=== PATIENT | male | born 1980 ===

== ENCOUNTER 2016-09-30 11:37 | Emergency (ER) | payer BC ==
[2016-09-30 12:53] VITALS: BP 129/87
--- NOTE | 2016-09-30 13:30 | UC ---
Abdominal Pain Male HPI - HPI Summary HPI Summary: Pt had mild URI sx starting about a week ago: ST, runny nose, mild cough. Was feeling a bit better 3 days ago, then that night developed fever, aches, and profuse vomiting and diarrhea. Fever continued for another 1.5 days, up to 102F at times, vomiting has resolved but diarrhea has continued. Still nauseated and low appetite. Mostly not coughing, but did develop pain in back and pain "in lungs" 3 days ago. Has improved somewhat; pt had pneumonia in the past, says this doesn't feel like that. - History of Current Complaint Chief Complaint: UCGeneralIllness Stated Complaint: N/V/D/Cough Time Seen by Provider: 09/30/16 13:12 Hx Obtained From: Patient Onset/Duration: Gradual Onset, Lasting Days Timing: Constant Severity Initially: Mild Severity Currently: Moderate Location: Diffuse Radiates: Yes Radiates to: Back Character: Cramping Aggravating Factor(s):: Food Alleviating Factor(s): Rest Associated Signs And Symptoms: Positive: Fever, Cough, Back Pain, Vomiting, Diarrhea - Allergies/Home Medications Allergies/Adverse Reactions: Allergies Allergy/AdvReac Type Severity Reaction Status Date / Time No Known Allergies Allergy Verified 09/30/16 12:46 Home Medications: Home Medications Acetaminophen TAB* [Tylenol TAB*] 09/30/16 [History] Ibuprofen TAB* [Advil TAB*] 09/30/16 [History] PMH/Surg Hx/FS Hx/Imm Hx Previously Healthy: Yes - Surgical History Surgical History: None - Family History Known Family History: Positive: Renal Disease - father has had 2 transplants, brother in renal failure - Social History Occupation: Employed Full-time Lives: With Family Alcohol Use: Occasionally Substance Use Type: None Smoking Status (MU): Current Some Day Smoker Type: Smokeless Tobacco Amount Used/How Often: occas Review of Systems Constitutional: Fever, Chills, Fatigue Skin: Negative Eyes: Negative ENT: Sore Throat, Nasal Discharge Respiratory: Cough Cardiovascular: Negative Gastrointestinal: Vomiting, Diarrhea Genitourinary: Negative Motor: Negative Neurovascular: Negative Musculoskeletal: Negative Neurological: Negative Psychological: Negative All Other Systems Reviewed And Are Negative: Yes Physical Exam Triage Information Reviewed: Yes Appearance: Well-Appearing, No Pain Distress, Well-Nourished Vital Signs: Initial Vital Signs Temp 97.7 F 01/03/17 12:47 Pulse 59 09/30/16 12:47 Resp 16 09/30/16 12:47 BP 129/87 09/30/16 12:47 Pulse Ox 100 09/30/16 12:47 Vital Signs Reviewed: Yes Eye Exam: Normal Eyes: Positive: Conjunctiva Clear ENT Exam: Normal ENT: Positive: Normal ENT inspection, Hearing grossly normal, Pharynx normal, TMs normal Dental Exam: Normal Neck exam: Normal Neck: Positive: Supple, Nontender, No Lymphadenopathy Respiratory Exam: Normal Respiratory: Positive: Chest non-tender, Lungs clear, Normal breath sounds, No respiratory distress, No accessory muscle use. Negative: Crackles, Rhonchi Cardiovascular Exam: Normal Cardiovascular: Positive: RRR, No Murmur Abdominal Exam: Normal Abdomen Description: Positive: Nontender, Soft Musculoskeletal Exam: Normal Neurological Exam: Normal Psychological Exam: Normal Skin Exam: Normal Abd Pain Male Course/Dx - Differential Dx/Clinical Impression Provider Diagnoses: URI. acute gastroenteritis Discharge - Discharge Plan Condition: Stable Disposition: HOME Prescriptions: Ondansetron TAB* [Zofran Tab*] 4 mg PO Q6H PRN #12 tab PRN Reason: Nausea Patient Education Materials: Gastroenteritis (ED), Upper Respiratory Infection (ED) Referrals: No Primary Care Phys,NOPCP [Primary Care Provider] - Additional Instructions: Please call or return if you have fever longer than 5 days or if you develop trouble breathing.
== END 2016-09-30 13:40 | disposition home or self-care (01) ==
LOC: UCEAST 11:37
DX: J06.9 Acute upper respiratory infection, unspecified (principal); K52.9 Noninfective gastroenteritis and colitis, unspecified; Z72.0 Tobacco use
CPT/HCPCS: 99212; G0463